=== PATIENT | female | born 2005 | race Caucasian/White ===

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

== ENCOUNTER 2023-09-24 05:18 | Emergency (ER) | payer OTHER ==
[2023-09-24 05:36] VITALS: BP 109/72; PULSE 86; TEMP 98.7
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
[2023-09-24 05:55] VITALS: RESP 18
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
== END 2023-09-24 06:23 | disposition home or self-care (01) ==
LOC: EC 05:18
DX: S80.02XA Contusion of left knee, initial encounter (principal); J45.909 Unspecified asthma, uncomplicated; Z91.013 Allergy to seafood; Z91.012 Allergy to eggs; V49.40XA Driver injured in collision with unspecified motor vehicles in traffic accident, initial encounter
CPT/HCPCS: 99284

== ENCOUNTER 2023-09-26 09:58 | Emergency (ER) | payer OTHER ==
[2023-09-26] MEDS ORDERED: ACETAMINOPHEN ORAL SUSP 160 MG/5 ML CUP PO STA (10:18)
[2023-09-26] MEDS ORDERED: ONDANSETRON ODT 4 MG TAB PO STA (10:18)
[2023-09-26] MEDS ORDERED: dexAMETHasone 4 MG TAB PO STA (10:18)
[2023-09-26 10:43] VITALS: RESP 18
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
[2023-09-26 11:47] VITALS: BP 109/76; PULSE 72; TEMP 97.3
== END 2023-09-26 11:54 | disposition home or self-care (01) ==
LOC: EC 09:58
DX: S06.0X0A Concussion without loss of consciousness, initial encounter (principal); R51.9 Headache, unspecified; R40.2410 Glasgow coma scale score 13-15, unspecified time; J45.909 Unspecified asthma, uncomplicated; Z91.012 Allergy to eggs; Z91.013 Allergy to seafood; V49.50XA Passenger injured in collision with unspecified motor vehicles in traffic accident, initial encounter
CPT/HCPCS: 73030; 70450; 99284; J8540